=== PATIENT | male | born 1935 | race Caucasian/White ===

== ENCOUNTER 2019-03-15 14:36 | Outpatient (CLI) ==
--- NOTE | 2019-03-15 16:30 | DI ---
EXAM: CHEST FRONTAL AND LATERAL VIEWS HISTORY: Chronic cough. COMPARISON: 12/15/2011 FINDINGS: Heart size and mediastinal contour remain within normal limits. There is mild to modera te atherosclerotic disease. There are scattered calcifications suggesting old granulomatous disease. No acute infiltrates are seen. No vascular congestion. There is no consolidation, visible pleural fluid or pneumothorax. Bones reveal no acute fracture. IMPRESSION: No acute cardiopulmonary process.
== END 2019-03-15 14:37 | disposition home or self-care (01) ==
LOC: RAD 14:36
PROVIDERS: ATTEND Internal Medicine
DX: R05 Cough (principal)

== ENCOUNTER 2019-06-24 06:32 | Outpatient (CLI) ==
--- NOTE | 2019-06-24 12:44 | ECHO2D ---
Date of Exam: 06/24/19 Ordering Physician: DR. VITALY MCCLAIN Room #: OP Reason for Echo: SOB, MITRAL VALVE PROLAPSE, LVH M-Mode Normal Adult Results LV Dimensions Normal Adult Results AoV Opening excursions >1.6 >1.6 LVEDD-base- 3.5-5.8 3.7 Ao root dimensions 2.0-3.7 3.8 LVESD-base- 3.1-4.6 L. Atrium dimensions 1.9-3.8 4.4 Post. Wall thickness 0.8-1.1 1.3 IV septum (thickness) 0.7-1.2 1.3 Post. Wall excursion 0.72-1.3 NORMAL Septal motion NORMAL Systolic motion R. Ventricular cavity 1.5-2.0 NORMAL LVEF 60% 66% Paradoxical septal wall motion NORMAL 2-D : 2-D M Mode Echocardiogram was performed using apical four chamber and left parasternal long and short axis views. Mitral, tricuspid and aortic valves appear to be normal. Contractility of the left ventricle seems to be normal, so is the cavity size. ENLARGED LEFT ATRIAL CAVITY. Aortic root appears to be normal. There is no pericardial effusion. There is no thrombus noted in the left ventricular or left aortic cavity. No mitral valve prolapse noted. COLOR FLOW: MILD TRICUSPID REGURGITATION AND MITRAL REGURGITATION M-MODE: MV: NORMAL AV: NORMAL TV: NORMAL PV: CHAMBER SIZE: ENLARGED LEFT ATRIAL CAVITY WALL MOTION: NORMAL PERICARDIUM: NORMAL INTERPRETATION: 1. LEFT VENTRICULAR HYPERTROPHY WITH ENLARGED LEFT ATRIAL CAVITY 2. NORMAL VALVES 3. NORMAL LEFT VENTRICULAR CONTRACTILITY 4. MILD MITRAL REGURGITATION AND TRICUSPID REGURGITATION MTDD
== END 2019-06-24 06:33 | disposition home or self-care (01) ==
LOC: CAR 06:32
PROVIDERS: ATTEND Internal Medicine
DX: R06.02 Shortness of breath (principal); I51.7 Cardiomegaly; I34.1 Nonrheumatic mitral (valve) prolapse

== ENCOUNTER 2021-04-21 21:44 | Inpatient (IN) ==
--- NOTE | 2021-04-21 22:08 | ED.PDOC ---
General ED Provider: Dr. ALEM KENT-ER Chief Complaint: Shortness of Air Stated Complaint: im sob, my legs are swelliing Time Seen by Provider: 04/21/21 22:00 Mode of Arrival: Walk-In Information Source: Patient Primary Care Provider: VITALY KIDD Nursing and Triage Documentation Reviewed and Agree: Yes Does patient meet sepsis criteria?: No System Inflammatory Response Syndrome: Not Applicable Sepsis Protocol: For patient's 13 years and over: Temp is 96.8 and below OR 101 and greater Pulse >90 BPM Resp >20/minute Acutely Altered Mental Status Are patient's symptoms suggestive of a new infection, such as: -Pneumonia -Skin, Soft Tissue -Endocarditis -UTI -Bone, Joint Infection -Implantable Device -Acute Abdominal Infection -Wound Infection -Meningitis -Blood Stream Catheter Infection -Unknown Respiratory Complaint Exam Shortness of Air Complaint/Exam Onset/Duration: several days Symptoms Are: Still present Timing: Constant Initial Severity: Mild Current Severity: Moderate Character: Reports Dyspnea on exertion Aggravating: Reports None Alleviating: Reports None Associated Signs and Symptoms: Reports Edema and Rapid breathing Home Oxygen Use: No Recent Stress Test: No Recent Echo/LV Function: No Respiratory Distress: None Stridor Present: No Tracheal Deviation: No Subcutaneous Emphysema: No Accessory Muscle Use: No Retractions: Not Present Diminished Breath Sounds: No Prolonged Expiratory Phase: No Unable to Speak Full Sentences: No Fatigue: Yes Leg Swelling: Yes Skye's Sign Present: No Grunting Respirations: No Kussmaul Respirations: No Differential Diagnoses: Pulmonary Edema, Pneumonia and URI Review of Systems Review Of Systems Constitutional: Reports No symptoms Eyes: Reports No symptoms Ears, Nose, Mouth, Throat: Reports No symptoms Respiratory: Reports Cough and Short of air Cardiac: Reports No symptoms GI: Reports No symptoms : Reports No symptoms Musculoskeletal: Reports No symptoms Skin: Reports No symptoms Neurological: Reports No symptoms Endocrine: Reports No symptoms Hematologic/Lymphatic: Reports No symptoms All Other Systems: Reviewed and Negative Physical Exam Physical Exam Appearance: Reports Not Applicable Ill-appearing: Moderate Pain Distress: Not Applicable Eyes: Reports MEGAN, EOMI and Conjunctiva clear ENT: Reports Ears normal, Nose normal and Oropharynx normal Neck: Supple Respiratory: Reports Airway patent and Rhonchi Cardiovascular: Reports RRR, Pulses normal and No rub GI/: Reports Soft, Nontender, No masses and Bowel sounds normal Musculoskeletal: Reports Normal strength, ROM intact, No edema and No calf tenderness Skin: Reports Warm, Dry and Normal color Neurological: Reports Sensation intact, Motor intact, Reflexes intact, Cranial nerves intact, Alert and Oriented Psychiatric: Reports Affect appropriate and Mood appropriate Interpretation Radiology Interpretation Radiology Interpretation By: Radiologist Radiology Results: Positive Exam Interpreted: CT Scan EKG Interpretation Time of EKG #1: 23:11 Rate: Tachy Rhythm: Other [place]: NL ST Segment: Normal Interpretation: afib wih rvr Physician Notification Case Discussed Physician Notified: dr kidd Time of Notification: 23:12 Critical Care Note Critical Care Note Total Critical Care Time (mins): 30 Course Course Hematology/Chemistry: 04/21/21 22:12 04/21/21 22:12 Orders, Labs, Meds: Lab Review 04/21/21 04/21/21 04/21/21 22:04 22:08 22:12 WBC 10.05 RBC 4.24 L Hgb 13.1 L Hct 39.6 L MCV 93.4 MCH 30.9 MCHC 33.1 RDW Coeff of Ap 13.8 Plt Count 186 Immature Gran % (Auto) 0.2 Neut % (Auto) 70.0 Lymph % (Auto) 17.7 [place] % (Auto) 10.6 H Eos % (Auto) 1.2 Baso % (Auto) 0.3 Neut # (Auto) 7.0 H Lymph # (Auto) 1.8 [place] # (Auto) 1.1 Eos # (Auto) 0.1 Baso # (Auto) 0.0 Immature Gran # (Auto) 0.0 Puncture Site [place] Excess 1.6 O2 Saturation 96.1 ABG pH 7.43 ABG pCO2 39.0 ABG pO2 80.0 L ABG HCO3 25.9 ABG Total CO2 27.1 H Flavio Test + Hemoglobin 1.2 Oxyhemoglobin 94.6 L Carboxyhemoglobin 1.9 H Total Hemoglobin 13.0 Sodium Potassium Chloride Carbon Dioxide Anion Gap BUN Creatinine Estimated GFR (MDRD) BUN/Creatinine Ratio Glucose Calcium Total Bilirubin AST ALT Alkaline Phosphatase NT-Pro-B Natriuret Pep Total Protein Albumin Globulin Albumin/Globulin Ratio TSH Adenovirus (PCR) Not detected B. pertussis DNA (PCR) Not detected B.parapertussis DNA PCR Not detected C. pneumoniae DNA (PCR) Not detected Coronavirus OC43 (PCR) Not detected Coronavirus HKU1 (PCR) Not detected Coronavirus 229E (PCR) Not detected Coronavirus NL63 (PCR) Not detected Human Metapneumovir PCR Not detected Influenza Type A (PCR) Not detected Influenza B (RT-PCR) Not detected M. pneumoniae (PCR) Not detected Parainfluenza 1 (PCR) Not detected Parainfluenza 2 (PCR) Not detected Parainfluenza 3 (PCR) Not detected Parainfluenza 4 (PCR) Not detected RSV (PCR) Not detected Entero/Rhino (PCR) Not detected SARS-CoV-2 (PCR) Not detected 04/21/21 04/21/21 22:12 22:12 WBC RBC Hgb Hct MCV MCH MCHC RDW Coeff of Ap Plt Count Immature Gran % (Auto) Neut % (Auto) Lymph % (Auto) [place] % (Auto) Eos % (Auto) Baso % (Auto) Neut # (Auto) Lymph # (Auto) [place] # (Auto) Eos # (Auto) Baso # (Auto) Immature Gran # (Auto) Puncture Site Base Excess O2 Saturation ABG pH ABG pCO2 ABG pO2 ABG HCO3 ABG Total CO2 Flavio Test Hemoglobin Oxyhemoglobin Carboxyhemoglobin Total Hemoglobin Sodium 137.9 Potassium 3.71 Chloride 105.0 Carbon Dioxide 28.9 Anion Gap 7.71 BUN 35.9 H Creatinine 1.23 H Estimated GFR (MDRD) 56.00 BUN/Creatinine Ratio 29.18 Glucose 90.3 Calcium 9.23 Total Bilirubin 0.53 AST 69.3 H ALT 120.8 H Alkaline Phosphatase 79.9 NT-Pro-B Natriuret Pep 3440.000 H Total Protein 5.98 L Albumin 3.66 Globulin 2.32 Albumin/Globulin Ratio 1.57 TSH 6.270 H Adenovirus (PCR) B. pertussis DNA (PCR) B.parapertussis DNA PCR C. pneumoniae DNA (PCR) Coronavirus OC43 (PCR) Coronavirus HKU1 (PCR) Coronavirus 229E (PCR) Coronavirus NL63 (PCR) Human Metapneumovir PCR Influenza Type A (PCR) Influenza B (RT-PCR) M. pneumoniae (PCR) Parainfluenza 1 (PCR) Parainfluenza 2 (PCR) Parainfluenza 3 (PCR) Parainfluenza 4 (PCR) RSV (PCR) Entero/Rhino (PCR) SARS-CoV-2 (PCR) Orders Category Date Time Status ABG DRAW REQUEST Stat CARDIO 04/21/21 22:04 Completed EKG-(ED ONLY) Stat CARDIO 04/21/21 22:04 Completed ED MOTOR EQUIPMENT SERGEANT APPLIED .ONCE EMERGENCY 04/21/21 22:04 Active ED IV/MEDIPORT/POWERPORT .ONCE EMERGENCY 04/21/21 22:04 Active ABG COOX Stat LAB 04/21/21 22:04 Completed CBC W/ AUTO DIFF Stat LAB 04/21/21 22:12 Completed COMPREHENSIVE METABOLIC PANEL Stat LAB 04/21/21 22:12 Completed NT-PROBNP Stat LAB 04/21/21 22:12 Completed RESPIRATORY PANEL 2.1 (PCR) Stat LAB 04/21/21 22:08 Completed THYROID STIMULATING HORMONE Stat LAB 04/21/21 22:12 Completed URINALYSIS C & S IF INDICATED Stat LAB 04/21/21 22:04 Uncollected 0.9 % Sodium Chloride [Saline Flush] MEDS 04/21/21 22:04 Active 1 syr IVF PRN PRN Digoxin Inj [Lanoxin] MEDS 04/21/21 23:11 Stat 250 mcg IVP ONCE STA Diltiazem HCl [Cardizem] 125 mg MEDS 04/21/21 23:00 Active 0.9 % Sodium Chloride [Sodium Chloride] [address] CHEST W/O CONTRAST Stat RADS 04/21/21 22:04 Completed Medications Generic Name Dose Route Start Last Admin Trade Name Freq PRN Reason Stop Dose Admin Digoxin 250 mcg 04/21/21 23:11 Digoxin Inj 500 Mcg/2 Ml Amp IVP 04/21/21 23:12 ONCE STA Diltiazem HCl 125 mg/ Sodium 125 mls @ 5 mls/hr 04/21/21 23:00 04/21/21 22:57 Chloride IV 5 mg/hr TITRATION CHANCE 5 mls/hr Administration Protocol 5 MG/HR Sodium Chloride 1 syr 04/21/21 22:04 0.9% Sodium Chloride 10 Ml Disp.Syrin IVF PRN PRN To flush IV Vital Signs: Temp Pulse Resp BP Pulse Ox 04/21/21 21:47 97.1 F L 81 22 128/77 96 Discharge Plan Discharge Patient Disposition: ADMITTED INPATIENT Discharge Problem: Atrial fibrillation with rapid ventricular response Prescriptions: No Action olmesartan 40 mg Tablet 40 mg PO DAILY RF: 0 prednisone 10 mg tablet 10 mg PO BID RF: 0 azithromycin 250 mg tablet 250 mg PO DAILY RF: 0 omeprazole 20 mg capsule,delayed release(DR/EC) 20 mg PO DAILY RF: 0 tamsulosin 0.4 mg capsule 0.4 mg PO DAILY RF: 0 hydrochlorothiazide 25 mg tablet 25 mg PO DAILY RF: 0 aspirin 325 mg Tablet 325 mg PO DAILY RF: 0 ED Provider: ALEM ROCKWELL Condition: Good Physician Progress Note: []
[2021-04-21 22:16] LABS: BORDETELLA PARAPERTUSSIS (PCR) NOT DETECTED (NOT DETECT); BORDETELLA PERTUSSIS (PCR) NOT DETECTED (NOT DETECT); CHLAMYDIA PNEUMONIAE (PCR) NOT DETECTED (NOT DETECT); CORONAVIRUS 229E (PCR) NOT DETECTED (NOT DETECT); CORONAVIRUS HKU1 (PCR) NOT DETECTED (NOT DETECT); CORONAVIRUS NL63 (PCR) NOT DETECTED (NOT DETECT); CORONAVIRUS OC43 (PCR) NOT DETECTED (NOT DETECT); HUMAN METAPNEUMOVIRUS (PCR) NOT DETECTED (NOT DETECT); HUMAN RHINOVIRUS/ENTEROV (PCR) NOT DETECTED (NOT DETECT); INFLUENZA B (PCR) NOT DETECTED (NOT DETECT); MYCOPLASMA PNEUMONIAE (PCR) NOT DETECTED (NOT DETECT); PARAINFLUENZA VIRUS 1 (PCR) NOT DETECTED (NOT DETECT); PARAINFLUENZA VIRUS 2 (PCR) NOT DETECTED (NOT DETECT); PARAINFLUENZA VIRUS 3 (PCR) NOT DETECTED (NOT DETECT); PARAINFLUENZA VIRUS 4 (PCR) NOT DETECTED (NOT DETECT); RESPIRATORY SYNCYTIAL V (PCR) NOT DETECTED (NOT DETECT); SARS_COV_2 (PCR) NOT DETECTED (NOT DETECT)
[2021-04-21 22:16] LABS: BASOPHILS % (AUTO) 0.3 % (0.0-3.0); EOSINOPHILS # (AUTO) 0.1 K/ul (0.0-0.7); EOSINOPHILS % (AUTO) 1.2 % (0.0-7.0); HEMATOCRIT 39.6 % (42.0-52.0); HEMOGLOBIN 13.1 g/dl (14.0-18.0); IMMATURE GRANULOCYTE % (AUTO) 0.2 % (0.0-5.0); LYMPHOCYTES # (AUTO) 1.8 K/uL (0.60-3.4); LYMPHOCYTES % (AUTO) 17.7 (10.0-50.0); MEAN CORPUSCULAR HEMOGLOBIN 30.9 pg (27.0-31.0); MEAN CORPUSCULAR HGB CONC 33.1 (31.8-35.4); MEAN CORPUSCULAR VOLUME 93.4 fl (80.0-94.0); MONOCYTES # (AUTO) 1.1 K/uL (0.4-2.0); MONOCYTES % (AUTO) 10.6 (0-10); PLATELET COUNT 186 10^3/uL (140-440); RDW COEFFICIENT OF VARIATION 13.8 % (11.6-14.8); RED BLOOD COUNT 4.24 10^6/ul (4.70-6.10); WHITE BLOOD COUNT 10.05 K/ul (4.2-10.2)
[2021-04-21 22:28] LABS: ALANINE AMINOTRANSFERASE 120.8 U/L (0-50); ALBUMIN 3.66 g/dL (3.5-5.0); ALKALINE PHOSPHATASE 79.9 U/L (56-119); ASPARTATE AMINO TRANSFERASE 69.3 U/L (17-59); BILIRUBIN,TOTAL 0.53 mg/dL (0.2-1.3); BLOOD UREA NITROGEN 35.9 mg/dL (9-20); CALCIUM 9.23 mg/dL (8.4-10.2); CARBON DIOXIDE 28.9 mmol/L (22-30.0); CREATININE 1.23 mg/dL (0.60-1.10); GLUCOSE 90.3 mg/dL (74-106); POTASSIUM 3.71 mmol/L (3.5-5.1); SODIUM 137.9 mmol/L (134.5-145); TOTAL PROTEIN 5.98 g/dL (6.3-8.2)
[2021-04-21 22:50] LABS: ABG PH 7.43 (7.35-7.45); BEecf 1.6 (-2.0-3.0)
[2021-04-21 22:51] LABS: ABG O2 HGB 94.6 % (95-100); COHb 1.9 (0.5-1.5); HCO3 25.9 (21-28); MetHb 1.2 (0-1.5); TCO2 27.1 (19-24); sO2 96.1 % (94-98)
[2021-04-21] MEDS: CARDIZEM 125 MG in SODIUM CHLORIDE 100 ML IV SCH (22:57)
[2021-04-21 22:59] LABS: THYROID STIMULATING HORMONE 6.27 uIU/L (0.465-4.68)
--- NOTE | 2021-04-21 23:00 | CT ---
EXAM: CT scan chest without contrast HISTORY: Dyspnea COMPARISON: None. FINDINGS: Helically acquired axial images obtained through the thorax without contrast utilizing 5-m m collimation. Sagittal and coronal reconstructions were imaged and reviewed.. The thoracic inlet i s unremarkable. The ascending aorta is ectatic measuring 4 cm. There are subcentimeter pretracheal lymph nodes. Evaluation hilar structures was limited without intravenous contrast. The heart is enl arged without pericardial effusion. There is mild coronary artery calcification.. There are moderat e sized bilateral pleural effusions measuring 4.8 cm AP dimension on the right and 4.7 cm AP dimensio n on the left. There is adjacent atelectasis and/or pneumonia. There is fissural fluid on the left. . Scarring is noted posteriorly at the left apex. There is a 5 mm nodule posteriorly within the lef t upper lobe which merits follow-up.. Remote compression deformities are noted at T1-T5 and T11. Th ere is a kyphotic deformity. Small amount perihepatic ascites. IMPRESSION: Cardiomegaly with mild coronary artery calcification. Ectatic ascending aorta. Moderate bowel pleural effusions with adjacent atelectasis and/or pneumonia. 5 mm left upper lobe nodule which merits follow-up. Comment: Fleischner Society Recommendations on Incidental Pulmonary Nodule Follow-up: -measurements are for average length and width, non solid (ground glass) or partly solid nodules may require longer follow-up. Low risk patient: (minimal or absent known risk factors) <=4mm- no follow up needed >4-6mm- 12 mo, >6-8mm- initial at 6-12 mo, then 18-24 mo if no change >8mm- follow up CT at 3, 9, 24 mo, dynamic thin slice contrast CT, PET and/or biopsy High risk patient: (history of smoking or other risk factors) <=4mm- follow up CT at 12 mo >4-6mm- initial CT at 6-12 mo then 18-24 mo if no change >6-8mm- initial CT at 3-6, 9-12 then 18-24 mo >8mm- same as low risk All CT scans are performed using dose optimization techniques as appropriate to the performed exam an d include at least one of the following: Automated exposure control, adjustment of the mA and/or kV according t o size, and the use of iterative reconstruction technique.
[2021-04-21 23:03] LABS: ADENOVIRUS (PCR) NOT DETECTED (NOT DETECT)
[2021-04-21] MEDS ORDERED: LANOXIN IVP STA (23:11)
[2021-04-22 01:36] VITALS: BMI 28.8
[2021-04-22 02:35] LABS: BILIRUBIN,URINE Negative (NEGATIVE); CLARITY,URINE Clear (CLEAR); COLOR,URINE Yellow (YELLOW); GLUCOSE, URINE (UA) Negative (NEGATIVE); KETONES,URINE Negative (NEGATIVE); LEUKOCYTE ESTERASE ,URINE Negative (NEGATIVE); NITRITE,URINE Negative (NEGATIVE); PROTEIN,URINE Negative (NEGATIVE); URINE, BLOOD Trace-intact (NEGATIVE); UROBILINOGEN,URINE 0.2 (0.2)
[2021-04-22 02:42] LABS: SQUAMOUS EPITHELIAL CELL,UR NOT PRESENT (0-5); URINE RBC, MICROSCOPIC 0-2 (0-2)
[2021-04-22] MEDS ORDERED: TYLENOL PO PRN (04:05)
[2021-04-22] MEDS ORDERED: NITROSTAT SL PRN (04:05)
[2021-04-22] MEDS ORDERED: ATROPINE SULFATE PFS IVP PRN (04:05)
[2021-04-22 04:22] LABS: BASOPHILS % (AUTO) 0.1 % (0.0-3.0); EOSINOPHILS % (AUTO) 0.3 % (0.0-7.0); HEMATOCRIT 38.7 % (42.0-52.0); HEMOGLOBIN 12.7 g/dl (14.0-18.0); IMMATURE GRANULOCYTE % (AUTO) 0.3 % (0.0-5.0); LYMPHOCYTES # (AUTO) 0.7 K/uL (0.60-3.4); LYMPHOCYTES % (AUTO) 9.4 (10.0-50.0); MEAN CORPUSCULAR HEMOGLOBIN 30.5 pg (27.0-31.0); MEAN CORPUSCULAR HGB CONC 32.8 (31.8-35.4); MONOCYTES # (AUTO) 0.5 K/uL (0.4-2.0); MONOCYTES % (AUTO) 6.3 (0-10); NEUTROPHILS # (AUTO) 6.6 K/ul (2.0-6.9); NEUTROPHILS % (AUTO) 83.6 % (42.2-75.2); PLATELET COUNT 172 10^3/uL (140-440); RDW COEFFICIENT OF VARIATION 13.8 % (11.6-14.8); RED BLOOD COUNT 4.16 10^6/ul (4.70-6.10)
[2021-04-22 04:33] LABS: CREATINE KINASE 142.4 U/L (55-170)
[2021-04-22 04:34] LABS: ALANINE AMINOTRANSFERASE 113.8 U/L (0-50); ALBUMIN 3.45 g/dL (3.5-5.0); ALKALINE PHOSPHATASE 80.8 U/L (56-119); ASPARTATE AMINO TRANSFERASE 61.6 U/L (17-59); BILIRUBIN,TOTAL 0.46 mg/dL (0.2-1.3); CALCIUM 9.19 mg/dL (8.4-10.2); CARBON DIOXIDE 29.9 mmol/L (22-30.0); CREATININE 1.08 mg/dL (0.60-1.10); GLUCOSE 117.9 mg/dL (74-106); POTASSIUM 4.27 mmol/L (3.5-5.1); SODIUM 137.1 mmol/L (134.5-145); TOTAL PROTEIN 5.6 g/dL (6.3-8.2)
[2021-04-22 04:55] LABS: TROPONIN I < 0.012 ng/ml (0.0000-0.120)
[2021-04-22] MEDS: LASIX IVP SCH (05:47)
[2021-04-22] MEDS ORDERED: HYDROCHLOROTHIAZIDE PO SCH (09:00)
[2021-04-22] MEDS ORDERED: BENICAR PO SCH (09:00)
[2021-04-22] MEDS: PRILOSEC PO SCH (09:10)
[2021-04-22] MEDS: ELIQUIS PO SCH ×2 (09:11→20:21)
[2021-04-22] MEDS: FLOMAX PO SCH (09:11)
[2021-04-22] MEDS: CARDIZEM 125 MG in SODIUM CHLORIDE 100 ML IV SCH ×2 (10:58→20:56)
[2021-04-22] MEDS ORDERED: K-DUR PO SCH (11:30)
[2021-04-22] MEDS: CARDIZEM PO SCH ×2 (12:00→20:21)
[2021-04-22] MEDS ORDERED: PREDNISONE PO SCH (12:00)
[2021-04-22] MEDS: ZITHROMAX PO SCH (12:08)
[2021-04-22] MEDS: MICRO-K CAP PO SCH (12:08)
[2021-04-22 12:32] LABS: CREATINE KINASE 125.2 U/L (55-170)
[2021-04-22 12:45] LABS: TROPONIN I < 0.012 ng/ml (0.0000-0.120)
[2021-04-22] MEDS: PREDNISONE PO SCH (16:21)
[2021-04-22] MEDS ORDERED: LANOXIN IVP STA (22:49)
[2021-04-23] MEDS: CARDIZEM PO SCH ×2 (05:13→21:32)
[2021-04-23 05:14] LABS: HEMATOCRIT 37.3 % (42.0-52.0); HEMOGLOBIN 12.4 g/dl (14.0-18.0); MEAN CORPUSCULAR HEMOGLOBIN 30.5 pg (27.0-31.0); MEAN CORPUSCULAR HGB CONC 33.2 (31.8-35.4); MEAN CORPUSCULAR VOLUME 91.9 fl (80.0-94.0); PLATELET COUNT 194 10^3/uL (140-440); RDW COEFFICIENT OF VARIATION 13.6 % (11.6-14.8); RED BLOOD COUNT 4.06 10^6/ul (4.70-6.10); WHITE BLOOD COUNT 8.09 K/ul (4.2-10.2)
[2021-04-23 05:30] LABS: ALANINE AMINOTRANSFERASE 98.1 U/L (0-50); ALBUMIN 3.53 g/dL (3.5-5.0); ALKALINE PHOSPHATASE 76.7 U/L (56-119); ASPARTATE AMINO TRANSFERASE 39.5 U/L (17-59); BILIRUBIN,TOTAL 0.65 mg/dL (0.2-1.3); BLOOD UREA NITROGEN 26.8 mg/dL (9-20); CALCIUM 9.04 mg/dL (8.4-10.2); CARBON DIOXIDE 31.4 mmol/L (22-30.0); CHLORIDE 100.3 mmol/L (98-107); CREATININE 1.08 mg/dL (0.60-1.10); POTASSIUM 4.39 mmol/L (3.5-5.1); SODIUM 135.6 mmol/L (134.5-145); TOTAL PROTEIN 5.7 g/dL (6.3-8.2)
[2021-04-23 05:39] LABS: ANISOCYTOSIS NOT PRESENT (NOT PRESENT)
[2021-04-23] MEDS: LASIX IVP SCH (05:48)
[2021-04-23 06:02] LABS: THYROID STIMULATING HORMONE 1.03 uIU/L (0.465-4.68)
[2021-04-23] MEDS: BENICAR PO SCH (09:33)
[2021-04-23] MEDS: ELIQUIS PO SCH ×2 (09:33→21:32)
--- NOTE | 2021-04-23 09:33 | PCM.PROG ---
Attending Provider: ATTENDING PROVIDER: Dr. VITALY MCCLAIN This patient is seen with Nadia Purvis, Nurse Practitioner. DATE OF SERVICE: 04/23/21 SUBJECTIVE: This 85 year old /WHITE M was hospitalized 04/22/21. The patient is resting comfortably.Stopped Cardizem drip around 5 this morning. Heart rate round 110-115. Reports feeing less short of breath. Significant urine output yesterday. REVIEW OF SYSTEMS: CONSTITUTIONAL: No night sweats. No fatigue, malaise, lethargy. No fever or chills. HEENT: Eyes: No visual changes. No eye pain. No eye discharge. ENT: No runny n ose. No epistaxis. No sinus pain. No odynophagia. No congestion. RESPIRATORY: No cough, no congestion. No hemoptysis. Shortness of breath. CARDIOVASCULAR: No angina symptoms. No CHF symptoms. No atypical chest pain for CAD. Palpitations. No orthopnea.. GASTROINTESTINAL: No abdominal pain. No nausea or vomiting. No diarrhea or constipation. No hematemesis. No hematochezia. GENITOURINARY: No urgency. No frequency. No dysuria. No hematuria. No obstructive symptoms. No discharge. No pain. No significant abnormal bleeding. MUSCULOSKELETAL: No musculoskeletal pain; no joint swelling. NEUROLOGICAL: Awake, alert, oriented to time, place and person. No headache. No neck pain. No syncope. No seizures. No dizziness. PSYCHIATRIC: Not anxious. No depression. No suicidal thoughts. No homicidal thoughts. SKIN: No rash. No lesions. No wounds. ENDOCRINE: No unexplained weight loss. No weight gain. HEMATOLOGIC/LYMPHATIC: No anemia. No purpura. No petechiae. No prolonged or excessive bleeding. No palpable lymph nodes. PHYSICAL EXAMINATION: GENERAL: The patient is awake, alert and oriented, lying in bed in no distress. VITAL SIGNS: Temperature 96.9 F, Pulse 114, Respiratory Rate 24, BP 118/71, Pulse Ox 92% HEENT: Head normocephalic, atraumatic. Eyes: Extraocular muscles are intact. Pupils are equal, round and reactive to light and accommodation. Ears: No lesions. Nose appeared normal. Throat: No exudate or erythema. NECK: Supple. No JVD, no carotid bruit. No lymphadenopathy or thyromegaly. LUNGS: Diminished breath sounds. Clear to auscultation. Percussion note normal. Chest symmetrical. HEART: Irregular heart rate. S1, S2, no S3. No murmurs. No cyanosis or clubbing. No ascites. Pulses: Dorsalis pedis and posterior tibial pulses +1 to +2 both sides. ABDOMEN: Soft. Non-tender. Bowel sounds active. No CVA tenderness. No mass felt. EXTREMITIES: Trace bilateral edema. Full range of motion of all extremities, equal. NEUROLOGIC: No focal deficit. Cranial nerves II through XII are grossly intact. No headache. No double vision. SKIN: Not dry. Intact. Turgor-normal. LYMPHATIC: No palpable lymph nodes/no lymphedema. MUSCULOSKELETAL: Normal joints with no swelling. Muscle tone is normal. LAB REVIEW: 04/23/21 04:35 04/23/21 04:35 04/23/21 04:35: Sodium 135.6, Potassium 4.39, Chloride 100.3, Carbon Dioxide 31.4 H, Anion Gap 8.29, BUN 26.8 H, Creatinine 1.08, Estimated GFR (MDRD) 65.00, BUN/Creatinine Ratio 24.81, Glucose 122.0 H, Calcium 9.04, Total Bilirubin 0.65, AST 39.5, ALT 98.1 H, Alkaline Phosphatase 76.7, Total Protein 5.70 L, Albumin 3.53, Globulin 2.17, Albumin/Globulin Ratio 1.62, TSH 1.030 D 04/23/21 04:35: WBC 8.09, RBC 4.06 L, Hgb 12.4 L, Hct 37.3 L, MCV 91.9, MCH 30.5, MCHC 33.2, RDW Coeff of Ap 13.6, Plt Count 194, Neutrophils % (Manual) 90.0 H, Lymphocytes % (Manual) 5.0 L, Monocytes % (Manual) 5.0, Anisocytosis Not present 04/23/21 04:35: Free T4 1.45 04/22/21 12:15: Total Creatine Kinase 125.2, CK-MB (CK-2) 10.900 H*, CK-MB (CK- 2) % 8.7000, Troponin I < 0.012 ASSESSMENT: Please see below. 1. New onset atrial fibrillation with RVR 2. CHF 3. Aortic stenosis PLAN: 1. Discontinue Prednisone 2. Will monitor heart rate with PO Cardizem Plan and coordination of the patient's care discussed in the presence of Parachute Rigger and nurse. SCRIBED BY: Cydney OBRIEN scribed while in presence of service performed by Dr. Mcclain/Nadia Purvis APRN on 04/23/21 ([id number])
[2021-04-23] MEDS: FLOMAX PO SCH (09:34)
[2021-04-23] MEDS: ZITHROMAX PO SCH (09:34)
[2021-04-23] MEDS: PRILOSEC PO SCH (09:34)
[2021-04-23] MEDS: MICRO-K CAP PO SCH (09:34)
--- NOTE | 2021-04-23 09:36 | PN ---
DATE OF SERVICE: 04/22/21 - ADMIT NOTE SUBJECTIVE: 85-year-old white male was brought to the emergency room by son because of having shortness of breath with cough. Also had bilateral leg swelling. The patient on further workup by the ER attending appeared to be in mild congestive heart failure along with atrial fib with rapid ventricular response with bilateral leg edema. Lungs on auscultation has crepitations bilaterally. JVP 2 cm. S1, S2 tachycardia, edema - +1 pitting. LABS: Hemoglobin 12.7, hematocrit 38, WBC 7,900, normal differential. Creatinine 1, BUN 33, potassium 4.2. Arterial blood gases showed pH 7.43 with p02 of 80, pc02 of 39, oxygen saturation 96% on room air. GFR 65 cc/min. Troponin negative. CK- MB borderline. Pro-BNP 3,440. ASSESSMENT: 1. CHF 2. Atrial fibrillation with rapid ventricular response. The patient's CHADS2 VASc score 3. The patient's daughter present in the room. Atrial fibrillation discussed with complications. PLAN: 1. T4, TSH as TSH is low. The patient could be hypothyroid. 2. Echo to evaluate LA size, LV function and valvular structures. 3. Discontinue Hydrochlorothiazide. 4. Continue Lasix. 5. Wean off Cardizem drip from 7. Start the patient on Cardizem 60 mg three times a day p.o. 6. Benicar to be reduced to 20 p.o. daily. Add Cardizem in case there is a hypotensive effect. 7. Will use Lanoxin if needed to control the ventricular rate. 8. We may add Amiodarone depending upon the patient's ventricular rate and cardiac structure. 9. Eliquis 5 mg p.o. twice a day. 10. Continue Zithromax and Prednisone. Education carried out about atrial fibrillation with complications. Eliquis with GI bleed and intracranial bleed discussed. No nonsteroidal antiinflammatory with Eliquis. TIME SPENT: More than 30 minutes. Plan and coordination of the patient's care discussed in the presence of nurse. PARMINDER
[2021-04-23] MEDS ORDERED: CARDIZEM PO ONE (10:14)
[2021-04-23] MEDS: PREDNISONE PO SCH (10:27)
[2021-04-23] MEDS ORDERED: LANOXIN IVP ONE ×2 (12:04→22:48)
[2021-04-23] MEDS: LANOXIN IVP ONE ×2 (13:08→13:17)
[2021-04-23] MEDS: CARDIZEM 125 MG in SODIUM CHLORIDE 100 ML IV SCH (22:30)
[2021-04-23] MEDS: LOPRESSOR PO SCH (23:03)
[2021-04-24 05:22] LABS: BASOPHILS % (AUTO) 0.2 % (0.0-3.0); EOSINOPHILS # (AUTO) 0.3 K/ul (0.0-0.7); EOSINOPHILS % (AUTO) 2.5 % (0.0-7.0); HEMATOCRIT 40.6 % (42.0-52.0); HEMOGLOBIN 13.4 g/dl (14.0-18.0); IMMATURE GRANULOCYTE % (AUTO) 0.4 % (0.0-5.0); LYMPHOCYTES # (AUTO) 1.8 K/uL (0.60-3.4); LYMPHOCYTES % (AUTO) 17.1 (10.0-50.0); MEAN CORPUSCULAR HEMOGLOBIN 30.7 pg (27.0-31.0); MEAN CORPUSCULAR VOLUME 93.1 fl (80.0-94.0); MONOCYTES # (AUTO) 0.9 K/uL (0.4-2.0); MONOCYTES % (AUTO) 8.6 (0-10); NEUTROPHILS # (AUTO) 7.6 K/ul (2.0-6.9); NEUTROPHILS % (AUTO) 71.2 % (42.2-75.2); PLATELET COUNT 201 10^3/uL (140-440); RDW COEFFICIENT OF VARIATION 13.6 % (11.6-14.8); RED BLOOD COUNT 4.36 10^6/ul (4.70-6.10)
[2021-04-24] MEDS: LASIX IVP SCH (05:30)
[2021-04-24 05:36] LABS: ALANINE AMINOTRANSFERASE 83.2 U/L (0-50); ALBUMIN 3.32 g/dL (3.5-5.0); ALKALINE PHOSPHATASE 73.3 U/L (56-119); ASPARTATE AMINO TRANSFERASE 34.4 U/L (17-59); BILIRUBIN,TOTAL 0.61 mg/dL (0.2-1.3); BLOOD UREA NITROGEN 27.9 mg/dL (9-20); CALCIUM 9.04 mg/dL (8.4-10.2); CHLORIDE 97.3 mmol/L (98-107); CREATININE 1.1 mg/dL (0.60-1.10); GLUCOSE 100.5 mg/dL (74-106); POTASSIUM 4.4 mmol/L (3.5-5.1); SODIUM 133.8 mmol/L (134.5-145); TOTAL PROTEIN 5.59 g/dL (6.3-8.2)
[2021-04-24] MEDS: PRILOSEC PO SCH (08:14)
[2021-04-24] MEDS: MICRO-K CAP PO SCH (08:14)
[2021-04-24] MEDS: LOPRESSOR PO SCH ×2 (08:14→21:20)
[2021-04-24] MEDS: FLOMAX PO SCH (08:14)
[2021-04-24] MEDS: CARDIZEM PO SCH ×2 (08:15→21:20)
[2021-04-24] MEDS: BENICAR PO SCH (08:27)
[2021-04-24] MEDS: ELIQUIS PO SCH ×2 (08:28→21:20)
--- NOTE | 2021-04-24 16:31 | RS.PTINEVL ---
Subjective - Patient information Date of Evaluation: 04/24/21 Date of Arrival on Unit: 04/21/21 Admitted From:: Emergency Dept Diagnosis: new onset AFib, CHF, aortic stenosis Usual Living Arrangement: With Spouse Home Environment: House, Stairs (few), Rail Medical History: Hypertension, CHF, Arthritis Medical History Comments:: GERD, cardiomegaly, diverticulosis, BPH, h/o falls Medications: see chart Subjective Information/ Patient Comments:: pt states that he normally walks ok and does not use an AD. pt states that this all came on fast. pt also reports that he has a torn L rotator cuff when he fell on the ice this past winter. - Level of function Prior to this admission, the patient could do the following:: Independent Selfcare, Independent ADL's, Independent Ambulation, Perform Table Tender/Cooking, Drive, Participated in Social Activities Outside home, Volunteer/Work Abilities prior to this admission: pt was independent with caring for his yard. Current Level of Function: Partially Dependent Comments: pt feels the socks are slick and feels better trying to amb in his shoes. Current Equipment Used at Home: none Interventions - Objective Patient Orientation: Person, Place, Time, Situation Current Interventions: Oxygen Range of Motion - ROM Right Upper Extremity AROM: Slight limitation (shld slighly limited due to previous injury) Left Upper Extremity AROM: WFL's Right Lower Extremity AROM: WFL's Left Lower Extremity AROM: WFL's Muscle Strength - Muscle Strength Right Upper Extremity Strength: Mild Weakness (shld flex 3+/5, elbow flex/ext 4/5,) Left Upper Extremity Strength: Mild Weakness (grossly 4/5) Right Lower Extremity Strength: Mild Weakness (hip flex 4-/5, knee flex/ext 4/5, ankle 4-/5) Left Lower Extremity Strength: Mild Weakness (hip flex 4-/5, knee flex/ext 4/5, ankle 4-/5) Sensation - Sensation Right Upper Extremity Sensation: Intact/Normal Left Upper Extremity Sensation: Intact/Normal Right Lower Extremity Sensation: Intact/Normal Left Lower Extremity Sensation: Intact/Normal Balance - Sitting Balance and Reactions Static Sitting Balance: Good Dynamic Sitting Balance: Good - Standing Balance and Reactions Static Standing Balance: Fair Dynamic Standing Balance: Poor Functional Mobility - Bed Mobility Comments:: pt seen sitting up in the chair - Transfers Sit to Stand: CGA, Min Assist Stand to Sit: CGA - Safety Awareness Safety Awareness: Fair PHILLIP INDEX SCORE: n/a Ambulation - Ambulation Assistive Device Used: Gait belt Orthotic/Prosthetic Device: No Distance: 110ft Assistance needed with Ambulation: CGA, Min Assist Gait Deviations: Forward posture, Short stride, Deviates from path Ambulation Comments: pt amb with B foot slap, occasional scissoring. Factors Affecting Ambulation: Decreased Balance, Breathing/O2 Saturation, Weakness, Decreased Safety, Limited Endurance Treatment time - Time with patient Length of Evaluation: 19 Total treatment time: 23 Patient Education - Education Patient Education: Activity Modification, Education of Plan of Care Teaching Recipient: Patient Teaching Methods: Discussion Assessment - Assessment Problem List:: Decreased level of function, Requires training/education, Decreased safety/Risk of falls, Weakness Rehab Potential: Good Further Therapy Indicated?: Yes Candidate for Swing Bed for Therapy Services?: Feel pt may be high level would need to reassess at a later date. Evaluation Complexity: HISTORY: Medium, EXAM OF BODY SYSTEMS: Medium, CLINICAL PRESENTATION: Medium, CLINICAL DECISION MAKING: Medium Patient's Goal(s): Get stronger and go home Short Term Goals GOAL #1: pt independent with rolling and scooting up in bed. Goal to be met by: 04/26/21 GOAL #2: Sup to/from sit independently Goal to be met by: 04/26/21 GOAL #3: Sit to/from stand SBA Goal to be met by: 04/26/21 GOAL #4: pt amb with AAD 140ft with improved posture and sequencing CGA to SBA Goal to be met by: 04/26/21 GOAL #5: Improve BLE strength 4+/5 Goal to be met by: 04/26/21 Table Tender Goals GOAL #1: pt amb functional distances with least AD independently Goal to be met by: 04/28/21 GOAL #2: Ascend/descend 3-4 steps w handrail SBA Goal to be met by: 04/28/21 GOAL #3: Transfer sit to/from stand independently Goal to be met by: 04/28/21 Plan Plan of Care: Therapeutic EX, Therapeutic Activity Other:: gait training Frequency of Treatment: 1-2 X day, as tolerated Duration of Treatment: 4 days Anticipated Discharge Destination: Home Treatment Diagnosis (ICD 10 Codes): impaired balance R 26.81. gait difficulty R 26.2. weakness M62.81 Has the Physician been added for Co-signature?: Yes
[2021-04-25 05:04] LABS: BASOPHILS % (AUTO) 0.3 % (0.0-3.0); EOSINOPHILS # (AUTO) 0.2 K/ul (0.0-0.7); HEMATOCRIT 40.1 % (42.0-52.0); HEMOGLOBIN 13.4 g/dl (14.0-18.0); IMMATURE GRANULOCYTE % (AUTO) 0.2 % (0.0-5.0); LYMPHOCYTES # (AUTO) 1.5 K/uL (0.60-3.4); LYMPHOCYTES % (AUTO) 14.4 (10.0-50.0); MEAN CORPUSCULAR HEMOGLOBIN 30.5 pg (27.0-31.0); MEAN CORPUSCULAR HGB CONC 33.4 (31.8-35.4); MEAN CORPUSCULAR VOLUME 91.3 fl (80.0-94.0); MONOCYTES % (AUTO) 9.8 (0-10); NEUTROPHILS # (AUTO) 7.4 K/ul (2.0-6.9); NEUTROPHILS % (AUTO) 73.3 % (42.2-75.2); PLATELET COUNT 206 10^3/uL (140-440); RDW COEFFICIENT OF VARIATION 13.2 % (11.6-14.8); RED BLOOD COUNT 4.39 10^6/ul (4.70-6.10); WHITE BLOOD COUNT 10.13 K/ul (4.2-10.2)
[2021-04-25 05:20] LABS: ALANINE AMINOTRANSFERASE 77.1 U/L (0-50); ALBUMIN 3.46 g/dL (3.5-5.0); ALKALINE PHOSPHATASE 80.7 U/L (56-119); ASPARTATE AMINO TRANSFERASE 34.5 U/L (17-59); BILIRUBIN,TOTAL 0.68 mg/dL (0.2-1.3); BLOOD UREA NITROGEN 28.7 mg/dL (9-20); CALCIUM 8.89 mg/dL (8.4-10.2); CARBON DIOXIDE 33.5 mmol/L (22-30.0); CHLORIDE 93.8 mmol/L (98-107); CREATININE 0.95 mg/dL (0.60-1.10); GLUCOSE 106.3 mg/dL (74-106); POTASSIUM 4.45 mmol/L (3.5-5.1); SODIUM 129.6 mmol/L (134.5-145); TOTAL PROTEIN 5.75 g/dL (6.3-8.2)
[2021-04-25] MEDS: LASIX IVP SCH (06:24)
[2021-04-25] MEDS: PRILOSEC PO SCH (06:24)
[2021-04-25] MEDS ORDERED: DECADRON IM ONE (08:11)
--- NOTE | 2021-04-25 08:29 | PCM.PROG ---
Attending Provider: ATTENDING PROVIDER: Dr. VITALY MCCLAIN This patient is seen with Nadia Purvis, Nurse Practitioner. DATE OF SERVICE: 04/25/21 SUBJECTIVE: This 85 year old /WHITE M was hospitalized 04/22/21. The patient is resting comfortably. Still feeling weak. Complains of sore throat feels it has narrowed, this occurred prior to admission. The patient feels it has returned and getting worse. No choking. The patient is feeling very weak. REVIEW OF SYSTEMS: CONSTITUTIONAL: No night sweats. No fatigue, malaise, lethargy. No fever or chills. Weakness. HEENT: Eyes: No visual changes. No eye pain. No eye discharge. ENT: No runny nose. No epistaxis. No sinus pain. No odynophagia. No congestion. RESPIRATORY: Cough, no congestion. No hemoptysis. No shortness of breath. CARDIOVASCULAR: No angina symptoms. No CHF symptoms. No atypical chest pain for CAD. No palpitations. No orthopnea.. GASTROINTESTINAL: No abdominal pain. No nausea or vomiting. No diarrhea or constipation. No hematemesis. No hematochezia. Dysphagia. GENITOURINARY: No urgency. No frequency. No dysuria. No hematuria. No obstructive symptoms. No discharge. No pain. No significant abnormal bleeding. MUSCULOSKELETAL: No musculoskeletal pain; no joint swelling. NEUROLOGICAL: Awake, alert, oriented to time, place and person. No headache. No neck pain. No syncope. No seizures. No dizziness. PSYCHIATRIC: Not anxious. No depression. No suicidal thoughts. No homicidal thoughts. SKIN: No rash. No lesions. No wounds. ENDOCRINE: No unexplained weight loss. No weight gain. HEMATOLOGIC/LYMPHATIC: No anemia. No purpura. No petechiae. No prolonged or excessive bleeding. No palpable lymph nodes. PHYSICAL EXAMINATION: GENERAL: The patient is awake, alert and oriented, lying in bed in no distress. VITAL SIGNS: Temperature 97.0 F, Pulse 80, Respiratory Rate 18, BP 125/74, Pulse Ox 95% HEENT: Head normocephalic, atraumatic. Eyes: Extraocular muscles are intact. Pupils are equal, round and reactive to light and accommodation. Ears: No lesions. Nose appeared normal. Throat: No exudate or erythema. NECK: Supple. No JVD, no carotid bruit. No lymphadenopathy or thyromegaly. LUNGS: Diminished breath sounds. Clear to auscultation. Percussion note normal. Chest symmetrical. HEART: S1, S2, no S3. Grade I/ murmurs. No cyanosis or clubbing. No ascite s. Pulses: Dorsalis pedis and posterior tibial pulses +1 to +2 both sides. ABDOMEN: Soft. Non-tender. Bowel sounds active. No CVA tenderness. No mass felt. EXTREMITIES: No edema. Full range of motion of all extremities, equal. NEUROLOGIC: No focal deficit. Cranial nerves II through XII are grossly intact. No headache. No double vision. SKIN: Not dry. Intact. Turgor-normal. LYMPHATIC: No palpable lymph nodes/no lymphedema. MUSCULOSKELETAL: Normal joints with no swelling. Muscle tone is normal. LAB REVIEW: 04/25/21 04:29 04/25/21 04:29 04/25/21 04:29: Sodium 129.6 L, Potassium 4.45, Chloride 93.8 L, Carbon Dioxide 33.5 H, Anion Gap 6.75, BUN 28.7 H, Creatinine 0.95, Estimated GFR (MDRD) 75.00, BUN/Creatinine Ratio 30.21, Glucose 106.3 H, Calcium 8.89, Total Bilirubin 0.68, AST 34.5, ALT 77.1 H, Alkaline Phosphatase 80.7, Total Protein 5.75 L, Albumin 3.46 L, Globulin 2.29, Albumin/Globulin Ratio 1.51 04/25/21 04:29: WBC 10.13, RBC 4.39 L, Hgb 13.4 L, Hct 40.1 L, MCV 91.3, MCH 30.5, MCHC 33.4, RDW Coeff of Ap 13.2, Plt Count 206, Immature Gran % (Auto) 0.2, Neut % (Auto) 73.3, Lymph % (Auto) 14.4, [place] % (Auto) 9.8, Eos % (Auto) 2.0, Baso % (Auto) 0.3, Neut # (Auto) 7.4 H, Lymph # (Auto) 1.5, [place] # (Auto) 1.0, Eos # (Auto) 0.2, Baso # (Auto) 0.0, Immature Gran # (Auto) 0.0 04/25/21 04:29: NT-Pro-B Natriuret Pep 1560.000 H ASSESSMENT: Please see below. 1. New onset atrial fibrillation rate now controlled 2. Mitral regurgitation 3. Dysphagia PLAN: 1. Upper GI 2. Repeat chest x-ray 3. Tomorrow start Lasix PO and discontinue IV 4. 4mg Decadrone IM today 5. Ativan 0.5mg QHS Plan and coordination of the patient's care discussed in the presence of [employer] and nurse. SCRIBED BY: Cydney OBRIEN scribed while in presence of service performed by Dr. Mcclain/Nadia Purvis APRN on 04/25/21 ([id number])
[2021-04-25] MEDS: BENICAR PO SCH (09:34)
[2021-04-25] MEDS: LOPRESSOR PO SCH ×2 (09:34→20:47)
[2021-04-25] MEDS: CARDIZEM PO SCH ×2 (09:34→20:46)
[2021-04-25] MEDS: FLOMAX PO SCH (09:34)
[2021-04-25] MEDS: MICRO-K CAP PO SCH (09:34)
[2021-04-25] MEDS: ELIQUIS PO SCH ×2 (09:35→20:45)
--- NOTE | 2021-04-25 10:39 | DI ---
EXAM: Single view of the chest HISTORY: Shortness of breath. COMPARISON: Chest x-ray at [address] chest 04/21/2021 FINDINGS: Cardiomediastinal silhouette is unchanged. There is no pneumothorax. There is blunting of the costophrenic angles consistent with effusions. There is minimal dependent atelectasis. The oss eous structures are unremarkable. IMPRESSION: Small bilateral pleural effusions with adjacent atelectasis.
--- NOTE | 2021-04-25 10:40 | DI ---
EXAM: AP and lateral views of the neck soft tissues COMPARISON: None. HISTORY: Sensation of something in the patient's throat. FINDINGS: No soft tissue swelling. No radiopaque foreign object is identified. Scattered arteriosclerotic calcifications. No acute osseous finding. IMPRESSION: No finding to explain reported symptoms. ASVD.
--- NOTE | 2021-04-25 11:49 | PN ---
DATE OF SERVICE: 04/23/2021 SUBJECTIVE: The patient was seen and examined with the Nurse Practitioner. The patient still has atrial fibrillation with rate of 110-30 per minute. He is going to be put on Cardizem 120mg BID drip. Cardizem will be stopped. Lanoxin extra dose will be given 0.25mg. Metoprolol 25mg BID was added along with 0.125mg IV Lanoxin. The patient's symptoms of CHF has resolved. He is feeling a lot better. Appetite has improved remarkably. Once the heart rate becomes acceptable we will do echocardiogram to evaluate LV function and valvular structures. TIME SPENT: More than 30 minutes. Plan and coordination of the patient's care discussed in the presence of nurse. PARMINDER
--- NOTE | 2021-04-25 14:40 | PN ---
DATE OF SERVICE: 04/24/2021 SUBJECTIVE: 85 year old white male hospitalized with atrial fibrillation with rapid ventricular response with CHF. The patient's CHF seems to have resolved. REVIEW OF SYSTEMS: CONSTITUTIONAL: No night sweats. No fatigue, malaise, lethargy. No fever or chills. HEENT: Eyes: No visual changes. No eye pain. No eye discharge. ENT: No runny nose. No epistaxis. No sinus pain. No sore throat. No odynophagia. No congestion. RESPIRATORY: No cough, no congestion. No hemoptysis. Shortness of breath, practically has subsided at rest. CARDIOVASCULAR: No angina symptoms. No CHF symptoms. No atypical chest pain for CAD. No palpitations. No PND. No orthopnea. GASTROINTESTINAL: No abdominal pain. No nausea or vomiting. No diarrhea or constipation. No hematemesis. No hematochezia. GENITOURINARY: No urgency. No frequency. No dysuria. No hematuria. No obstructive symptoms. No discharge. No pain. No significant abnormal bleeding. MUSCULOSKELETAL: No musculoskeletal pain; no joint swelling. NEUROLOGICAL: No headache. No neck pain. No syncope. No seizures. No dizziness. PSYCHIATRIC: Not anxious. No depression. No suicidal thoughts. No homicidal thoughts. SKIN: No rash. No lesions. No wounds. ENDOCRINE: No unexplained weight loss. No weight gain. HEMATOLOGIC/LYMPHATIC: No anemia. No purpura. No petechiae. No prolonged or excessive bleeding. No palpable lymph nodes. PHYSICAL EXAMINATION: VITAL SIGNS: Temperature 97.4, pulse 83, respiratory rate 16, blood pressure 120/80 and pulse ox 93%. HEENT: Head normocephalic, atraumatic. Eyes: Extraocular muscles are intact. Pupils are equal, round and reactive to light and accommodation. Ears: No lesions. Nose appeared normal. Throat: No exudate or erythema. NECK: Supple. No JVD, no carotid bruit. No lymphadenopathy or thyromegaly. LUNGS: Decreased breath sounds with good air entry. Percussion note normal. Chest symmetrical. HEART: S1, S2, no S3. No murmurs. Rate is 90 per minutes. No cyanosis or clubbing. No ascites. Pulses: Dorsalis pedis and posterior tibial pulses +1 to +2 bilaterally. ABDOMEN: Soft. Nontender. Bowel sounds active. No CVA tenderness. No mass felt. EXTREMITIES: No edema. Full range of motion of all extremities, equal. NEUROLOGIC: No focal deficit. Cranial nerves II through XII are grossly intact. No headache. No double vision. SKIN: Not dry. Intact. Turgor - normal. LYMPHATIC: No palpable lymph nodes/no lymphedema. MUSCULOSKELETAL: Normal joints with no swelling. Muscle tone is normal. LABS: Hgb 13, hct 40, WBC 10,000 normal differential, creatinine 1, BUN 27, potassium 4.4 ASSESSMENT: 1. CHF seems to have resolved 2. Atrial fibrillation with normal ventricular response 3. Chronic lung disease PLAN: 1. BNP in the morning 2. Chest x-ray in the morning 3. Echo was done which showed the same as before with LVH with enlarged LA cavity which is 5 cm. The patient has severe tricuspid regurgitation and moderate mitral regurgitation. 4. Cut down Benicar to 10mg 5. PT/OT 6. The patient is on Eliquis,side effects discussed with GI bleed and intracranial bleed. No non-steroids antiinflammatory. Again discussed with the patient. 7. He is already on Metoprolol and Cardizem. Continue both, control the rate. TIME SPENT: More than 30 minutes. Plan and coordination of the patient's care discussed in the presence of nurse. PARMINDER
[2021-04-25] MEDS ORDERED: ATIVAN PO SCH (21:00)
[2021-04-26 05:06] LABS: BASOPHILS % (AUTO) 0.1 % (0.0-3.0); HEMATOCRIT 39.4 % (42.0-52.0); HEMOGLOBIN 13.3 g/dl (14.0-18.0); IMMATURE GRANULOCYTE # (AUTO) 0.1 (0.0-1.0); IMMATURE GRANULOCYTE % (AUTO) 0.4 % (0.0-5.0); LYMPHOCYTES # (AUTO) 0.6 K/uL (0.60-3.4); LYMPHOCYTES % (AUTO) 4.3 (10.0-50.0); MEAN CORPUSCULAR HGB CONC 33.8 (31.8-35.4); MEAN CORPUSCULAR VOLUME 88.7 fl (80.0-94.0); MONOCYTES # (AUTO) 0.8 K/uL (0.4-2.0); MONOCYTES % (AUTO) 6.5 (0-10); NEUTROPHILS # (AUTO) 11.3 K/ul (2.0-6.9); NEUTROPHILS % (AUTO) 88.7 % (42.2-75.2); PLATELET COUNT 217 10^3/uL (140-440); RDW COEFFICIENT OF VARIATION 13.1 % (11.6-14.8); RED BLOOD COUNT 4.44 10^6/ul (4.70-6.10); WHITE BLOOD COUNT 12.73 K/ul (4.2-10.2)
[2021-04-26 05:21] LABS: ALANINE AMINOTRANSFERASE 70.7 U/L (0-50); ALBUMIN 3.44 g/dL (3.5-5.0); ASPARTATE AMINO TRANSFERASE 36.8 U/L (17-59); BILIRUBIN,TOTAL 0.83 mg/dL (0.2-1.3); BLOOD UREA NITROGEN 29.2 mg/dL (9-20); CALCIUM 9.15 mg/dL (8.4-10.2); CARBON DIOXIDE 29.1 mmol/L (22-30.0); CHLORIDE 96.5 mmol/L (98-107); CREATININE 0.89 mg/dL (0.60-1.10); GLUCOSE 118.6 mg/dL (74-106); POTASSIUM 4.35 mmol/L (3.5-5.1); SODIUM 129.2 mmol/L (134.5-145); TOTAL PROTEIN 5.74 g/dL (6.3-8.2)
[2021-04-26] MEDS ORDERED: LASIX TAB PO SCH (06:30)
[2021-04-26] MEDS: LASIX IVP SCH (07:01)
--- NOTE | 2021-04-26 09:21 | PCM.PROG ---
Attending Provider: ATTENDING PROVIDER: Dr. VITALY MCCLAIN DATE OF SERVICE: 04/26/21 SUBJECTIVE: This 85 year old /WHITE M was hospitalized 04/22/21 with atrial fibrillation with rapid ventricular response. The patient had left ventricular failure. REVIEW OF SYSTEMS: CONSTITUTIONAL: No night sweats. No fatigue, malaise, lethargy. No fever or chills. HEENT: Eyes: No visual changes. No eye pain. No eye discharge. ENT: No runny nose. No epistaxis. No sinus pain. No odynophagia. No congestion. RESPIRATORY: No cough, no congestion. No hemoptysis. No shortness of breath. CARDIOVASCULAR: No angina symptoms. No CHF symptoms. No atypical chest pain for CAD. No palpitations. No orthopnea.. GASTROINTESTINAL: No abdominal pain. No nausea or vomiting. No diarrhea or constipation. No hematemesis. No hematochezia. Some difficulty swallowing. GENITOURINARY: No urgency. No frequency. No dysuria. No hematuria. No obstructive symptoms. No discharge. No pain. No significant abnormal bleeding. MUSCULOSKELETAL: No musculoskeletal pain; no joint swelling. NEUROLOGICAL: Awake, alert, oriented to time, place and person. No headache. No neck pain. No syncope. No seizures. No dizziness. PSYCHIATRIC: Not anxious. No depression. No suicidal thoughts. No homicidal thoughts. SKIN: No rash. No lesions. No wounds. ENDOCRINE: No unexplained weight loss. No weight gain. HEMATOLOGIC/LYMPHATIC: No anemia. No purpura. No petechiae. No prolonged or excessive bleeding. No palpable lymph nodes. PHYSICAL EXAMINATION: GENERAL: The patient is awake, alert and oriented, lying in bed in no distress. VITAL SIGNS: Temperature 97.8 F, Pulse 95, Respiratory Rate 20, BP 111/73, Pulse Ox 92% HEENT: Head normocephalic, atraumatic. Eyes: Extraocular muscles are intact. Pupils are equal, round and reactive to light and accommodation. Ears: No lesions. Nose appeared normal. Throat: No exudate or erythema. NECK: Supple. No JVD, no carotid bruit. No lymphadenopathy or thyromegaly. LUNGS: Clear to auscultation. Percussion note normal. Chest symmetrical. HEART: S1, S2, no S3 rate 90 per minute. Grade II/ systolic murmurs going to axilla. No cyanosis or clubbing. No ascites. Pulses: Dorsalis pedis and posterior tibial pulses +1 to +2 both sides. ABDOMEN: Soft. Non-tender. Bowel sounds active. No CVA tenderness. No mass felt. EXTREMITIES: No edema. Full range of motion of all extremities, equal. NEUROLOGIC: No focal deficit. Cranial nerves II through XII are grossly intact. No headache, no double vision or headache. SKIN: Warm and dry. Intact. Turgor-normal. LYMPHATIC: No palpable lymph nodes/no lymphedema. MUSCULOSKELETAL: Normal joints with no swelling. Muscle tone is normal. LAB REVIEW: 04/26/21 04:42 04/26/21 04:42 04/26/21 04:42: Sodium 129.2 L, Potassium 4.35, Chloride 96.5 L, Carbon Dioxide 29.1, Anion Gap 7.95, BUN 29.2 H, Creatinine 0.89, Estimated GFR (MDRD) 81.00, BUN/Creatinine Ratio 32.80, Glucose 118.6 H, Calcium 9.15, Total Bilirubin 0.83, AST 36.8, ALT 70.7 H, Alkaline Phosphatase 88.0, Total Protein 5.74 L, Albumin 3.44 L, Globulin 2.30, Albumin/Globulin Ratio 1.49 04/26/21 04:42: WBC 12.73 H, RBC 4.44 L, Hgb 13.3 L, Hct 39.4 L, MCV 88.7, MCH 30.0, MCHC 33.8, RDW Coeff of Ap 13.1, Plt Count 217, Immature Gran % (Auto) 0.4, Neut % (Auto) 88.7 H, Lymph % (Auto) 4.3 L, [place] % (Auto) 6.5, Eos % (Auto) 0.0, Baso % (Auto) 0.1, Neut # (Auto) 11.3 H, Lymph # (Auto) 0.6, [place] # (Auto) 0.8, Eos # (Auto) 0.0, Baso # (Auto) 0.0, Immature Gran # (Auto) 0.1 ASSESSMENT: Please see below. 1. Atrial fibrillation with practically normal ventricular response. The patient is on Cardizem, Metoprolol and Eliquis 2. CHF seems to be under control 3. Hypertension, controlled. PLAN: 1. Upper GI for dysphagia 2. Continue the rest of the medications. Plan and coordination of the patient's care discussed in the presence of Community Service Technician and nurse. SCRIBED BY: Cydney OBRIEN scribed while in presence of service performed by Dr. VITALY MCCLAIN on 04/26/21 ([id number])
--- NOTE | 2021-04-26 09:33 | HP ---
DATE OF SERVICE: 04/22/21 HISTORY OF PRESENT ILLNESS: This is an 85-year-old white male who presents to the emergency room complaining of shortness of breath and his legs have been swelling. PAST MEDICAL HISTORY: Right shoulder pain Anemia Chronic cough PVCs PACs COPD Hypertension Neuropathy Kyphosis Systolic murmur with mitral regurgitation History of weight loss LVH The patient has had both Covid vaccines BPH Hypertension Dyslipidemia PAST SURGICAL HISTORY: Last EGD and colonoscopy were in June of 2020. The patient has had both Covid vaccines. REVIEW OF SYSTEMS: CONSTITUTIONAL: Weakness. No night sweats. No fatigue, malaise, lethargy. No fever or chills. HEENT: Eyes: No visual changes. No eye pain. No eye discharge. ENT: No runny nose. No epistaxis. No sinus pain. No sore throat. No odynophagia. No ear pain. No congestion. RESPIRATORY: Positive for cough and shortness of breath. No hemoptysis. CARDIOVASCULAR: No angina symptoms. No CHF symptoms. No atypical chest pain for CAD. No palpitations. No PND. No orthopnea. GASTROINTESTINAL: No abdominal pain. No nausea or vomiting. No diarrhea or constipation. No hematemesis. No hematochezia. GENITOURINARY: No urgency. No frequency. No dysuria. No hematuria. No obstructive symptoms. No discharge. No pain. No significant abnormal bleeding. MUSCULOSKELETAL: Positive for leg edema. No musculoskeletal pain. No joint swelling. No arthritis. NEUROLOGICAL: No headache. No neck pain. No syncope. No seizures. No dizziness. PSYCHIATRIC: Not anxious. No depression. No suicidal thoughts. No homicidal thoughts. SKIN: No rash. No lesions. No wounds. ENDOCRINE: No unexplained weight loss. No weight gain. HEMATOLOGIC/LYMPHATIC: No anemia. No purpura. No petechiae. No prolonged or excessive bleeding. No palpable lymph nodes. PERSONAL/FAMILY/SOCIAL HISTORY: He is a nonsmoker. No alcohol or illcit drug use. MEDICATIONS: Olmesartan 40 mg p.o. daily Tamsulosin ALLERGIES: NKDA PHYSICAL EXAMINATION: VITAL SIGNS: Temperature 97.1, heart rate initially 140, respirations 22, BP 128/77, pulse ox 96%. HEENT: Head normocephalic, atraumatic. Eyes: Extraocular muscles are intact. Pupils are equal, round and reactive to light and accommodation. Ears: No lesions. Nose appeared normal. Throat: No exudate or erythema. NECK: Supple. No JVD, no carotid bruit. No lymphadenopathy or thyromegaly. LUNGS: Clear to auscultation. Percussion note normal. Chest symmetrical. HEART: S1, S2, no S3. No murmur. No cyanosis or clubbing. No ascites. Pulses: Dorsalis pedis and posterior tibial pulses +1 to +2 bilaterally. ABDOMEN: Soft. Nontender. Bowel sounds active. No CVA tenderness. No mass felt. EXTREMITIES: No edema. Full range of motion of all extremities, equal. NEUROLOGIC: No focal deficit. Cranial nerves II through XII are grossly intact. No headache, no double vision or headache. SKIN: Not dry. Intact. Turgor - normal. LYMPHATIC: No palpable lymph nodes/no lymphedema. MUSCULOSKELETAL: Normal joints with no swelling. Muscle tone is normal. White count 10.05, hemoglobin 13.1, hematocrit 39.6, platelets 186. Sodium 137, potassium 3.7, BUN 35, creatinine 1.23. ABGs on room air 02 sat of 96, pH 7.43, pc02 39, p02 80, bicarb 25.9. Respiratory panel by PCR is negative. NT-Pro-BNP is 3,440, TSH 6.27, AST 69, ALT 120. EKG shows new onset atrial fibrillation with RVR. CT of the chest shows cardiomegaly with mild coronary artery calcification, ectatic ascending aorta, moderate bilateral pleural effusion with adjacent atelectasis, 5 mm left upper lobe nodule. ASSESSMENT: 1. New onset atrial fibrillation with rapid ventricular response. 2. Shortness of breath. 3. Underlying COPD. 4. Moderate mitral regurgitation. PLAN: 1. We will admit. 2. Routine telemetry orders. 3. CBC, CMP daily. 4. Start Cardizem drip 5 mg/hr, will wean down. 5. Start Cardizem 60 mg p.o. t.i.d. 6. 02 at 1 to 2L as needed. 7. Routine telemetry orders. 8. CBC, CMP daily. 9. T4, TSH. 10. Will follow closely. 11. Lasix 40 mg IV times one. TIME SPENT: More than 70 minutes. MTDD
[2021-04-26 10:13] VITALS: BP 0/0; TEMP 0
[2021-04-26] MEDS: BENICAR PO SCH (10:29)
[2021-04-26] MEDS: LOPRESSOR PO SCH (10:29)
[2021-04-26] MEDS: PRILOSEC PO SCH (10:29)
[2021-04-26] MEDS: FLOMAX PO SCH (10:29)
[2021-04-26] MEDS: MICRO-K CAP PO SCH (10:29)
[2021-04-26] MEDS: ELIQUIS PO SCH (10:30)
[2021-04-26] MEDS: CARDIZEM PO SCH (10:30)
--- NOTE | 2021-04-26 10:51 | DI ---
EXAM: Esophogram HISTORY: Feels something in throat COMPARISON: None FINDINGS: Esophogram was performed using barium, effervescent crystals and dissolvable barium tablet . Mild tertiary contractions noted during the exam. Otherwise, esophageal motility is normal. Esopha geal caliber is normal. Esophogeal mucosal pattern is grossly normal, noting portions of the esophogu s demonstrate single contrast opacification which limits evaluation. No filling defect is seen in the esophagus. No hiatal hernia. No visualized reflux. IMPRESSION: 1. No focal fluoroscopic abnormality at the patient's right upper neck region of interest. 2. No evidence of esophageal stricture or filling defect. 3. Mild tertiary contractions during the exam suggesting mild degree of dysmotility.
--- NOTE | 2021-04-26 11:21 | CM.DICTOOL ---
ADMISSION: 04/22/21 00:26 DISCHARGE: APRIL 26, 2021 DATE OF SERVICE: 04/26/21 FINAL DIAGNOSIS NEW ONSET ATRIAL FIBRILLATION WITH AVR CHF SEVERE TR, MODERATE MR HYPERTENSION HX: COPD/KYPHOSIS HTN CARDIOMEGALY ATHEROSCLEROSIS BPH GERD DIVERTICULOSIS FALL SURGICAL HX: APPENDECTOMY TONSILLECTOMY CODE STATUS: FULL CODE LAST VITALS Temp Pulse Resp BP Pulse Ox 97.8 F 95 H 20 111/73 92 L 04/26/21 05:26 04/26/21 05:26 04/26/21 05:26 04/26/21 05:26 04/26/21 05:26 TAKE THESE MEDICATIONS AT HOME Apixaban (Apixaban 5 Mg Tab) 5 mg PO BID Last Admin: 04/25/21 20:45 Dose: 5 mg Diltiazem HCl (Diltiazem Hcl 60 Mg Tablet) 120 mg PO Q12HR [facility] Last Admin: 04/25/21 20:46 Dose: 120 mg Furosemide (Furosemide 20 Mg Tablet) 20 mg PO QDAC [facility] Metoprolol Tartrate (Metoprolol Tartrate 25 Mg Tablet) 25 mg PO BID [facility] Last Admin: 04/25/21 20:47 Dose: 25 mg Olmesartan (Olmesartan Medoxomil 20 Mg Tablet) 10 mg PO DAILY [facility] Last Admin: 04/25/21 09:34 Dose: 10 mg Omeprazole (Omeprazole 20 Mg Capsule.Dr) 20 mg PO QDAC [facility] Last Admin: 04/25/21 06:24 Dose: 20 mg Potassium Chloride (Potassium Chloride 10 Meq Capsule.Er) 10 meq PO DAILYWM [facility] Last Admin: 04/25/21 09:34 Dose: 10 meq Tamsulosin HCl (Tamsulosin Hcl 0.4 Mg Cap.Er.24h) 0.4 mg PO DAILY [facility] Last Admin: 04/25/21 09:34 Dose: 0.4 mg ALLERGIES No Known Allergies Allergy (Verified 04/21/21 22:18) DISCONTINUED MEDICATIONS 1). Azithromycin 250 mg PO DAILY 2). PREDNISONE 10 MG PO BID 3). ASPIRIN 81 MG PO DAILY 4). Hydrochlorothiazide 25 mg PO DAILY 5). BENICAR (Olmesartan) 40 mg PO DAILY NEW PRESCRIPTIONS: ELIQUIS (Apixaban 5 Mg Tab) 5 mg PO BID CARDIZEM (Diltiazem Hcl 60 Mg Tablet) 120 mg PO Q12HR LASIX (Furosemide 20 Mg Tablet) 20 mg PO QDAC LOPRESSOR (Metoprolol Tartrate 25 Mg Tablet) 25 mg PO BID BENICAR (Olmesartan Medoxomil 20 Mg Tablet) 10 mg PO DAILY Potassium Chloride 10 meq PO DAILYWM g SMOKING: N/A DISEASE SPECIFIC EDUCATION: A- FIB CHF HYPERTENSION BLEEDING PRECAUTION ACTIVITY HEART HEALTHY DIET COVID LAB REVIEW: 04/26/21 04:42 04/26/21 04:42 04/26/21 04:42: Sodium 129.2 L, Potassium 4.35, Chloride 96.5 L, Carbon Dioxide 29.1, Anion Gap 7.95, BUN 29.2 H, Creatinine 0.89, Estimated GFR (MDRD) 81.00, BUN/Creatinine Ratio 32.80, Glucose 118.6 H, Calcium 9.15, Total Bilirubin 0.83, AST 36.8, ALT 70.7 H, Alkaline Phosphatase 88.0, Total Protein 5.74 L, Albumin 3.44 L, Globulin 2.30, Albumin/Globulin Ratio 1.49 04/26/21 04:42: WBC 12.73 H, RBC 4.44 L, Hgb 13.3 L, Hct 39.4 L, MCV 88.7, MCH 30.0, MCHC 33.8, RDW Coeff of Ap 13.1, Plt Count 217, Immature Gran % (Auto) 0.4, Neut % (Auto) 88.7 H, Lymph % (Auto) 4.3 L, [place] % (Auto) 6.5, Eos % (Auto) 0.0, Baso % (Auto) 0.1, Neut # (Auto) 11.3 H, Lymph # (Auto) 0.6, [place] # (Auto) 0.8, Eos # (Auto) 0.0, Baso # (Auto) 0.0, Immature Gran # (Auto) 0.1 PLAN: DISCHARGE: HOME TODAY, APRIL 26, 2021 INDEPENDENT AT HOME ACTIVITY: UP TOLERATED WITH NO ASSISTIVE DEVICE NO STRENIOUS ACTIVITY UNTIL RELEASED BY MD NO OUTSIDE ACTIVITIES UNTIL RELEASED BY MD BLEEDING PRECAUTIONS, RISK AND S/S OF GASTRIC OR INTRACRANIAL BLEEDING NO NSAIDS, CAN CAUSE INCREASED RISK IN BLEEDING PANDEMIC PRECAUTIONS DIET: HEART HEALTHY MD FOLLOW-UP: SEE DR. MCCLAIN/ KRISTI ANN APRN/ CHRIS FULLER APRN IN THE OFFICE ON SUNDAY, MAY 02, 2021 @ 1100 AM. CODE STATUS: FULL CODE MR. ALLEN REMAINS ALERT AND ORIENTED X 4. HE IS UP TOLERATED AND INDEPENDENT, NO ASSISTIVE DEVICE. HE DOES REPORT SOA WITH EXERTION BUT NO CHEST PAIN. SKIN WARM, DRY AND INTACT. TRACE EDEMA TO LEGS. HE CONTINUES TO HAVE OXYGEN SATURATIONS IN THE UPPER 90% ON ROOM AIR. HE FEEDS SELF AND HAS BEEN CONSUMING 100% OF HIS MEALS, EXCEPT 50% FOR THE 04/25 NOON MEAL. CONTINENT OF SAMIA L AND BLADDER. LAST BM 04/23/2021. HE LIVES ALONE AND STILL DRIVES. MD KRISTI BACON APRN ALYCE HANNAN, APRN
[2021-04-26] MEDS ORDERED: DECADRON IM STA (13:15)
--- NOTE | 2021-04-29 08:06 | ECHO2D ---
Date of Exam: 04/24/2021 Ordering Physician: DR. VITALY MCCLAIN Room #: [id number] Reason for Echo: ATRIAL FIBRILLATION, HYPERTENSION M-Mode Normal Adult Results LV Dimensions Normal Adult Results AoV Opening excursions >1.6 >1.6 LVEDD-base- 3.5-5.8 4.0 Ao root dimensions 2.0-3.7 3.9 LVESD-base- 3.1-4.6 L. Atrium dimensions 1.9-3.8 5.1 Post. Wall thickness 0.8-1.1 1.2 IV septum (thickness) 0.7-1.2 1.3 Post. Wall excursion 0.72-1.3 NORMAL Septal motion NORMAL Systolic motion R. Ventricular cavity 1.5-2.0 4.5 LVEF 60% 55% Paradoxical septal wall motion NORMAL 2-D : 2-D M Mode Echocardiogram was performed using apical four chamber and left parasternal long and short axis views. Mitral, tricuspid and aortic valves appear to be normal. Contractility of the left ventricle seems to be normal, so is the cavity size. ENLARGED LEFT ATRIAL CAVITY. Aortic root appears to be normal. There is no pericardial effusion. There is no thrombus noted in the left ventricle or left atrial cavity. ENLARGED RIGHT VENTRICLE CAVITY COLOR FLOW: SEVERE TRICUSPID REGURGITATION AND MODERATE MITRAL REGURGITATION M-MODE: MV: NORMAL AV: NORMAL TV: NORMAL PV: CHAMBER SIZE: ENLARGED LEFT ATRIAL AND RIGHT VENTRICLE CAVITY WALL MOTION: NORMAL PERICARDIUM: NORMAL INTERPRETATION: 1. LEFT VENTRICULAR HYPERTROPHY WITH ENLARGED LEFT ATRIAL CAVITY (5.1 CM) 2. ENLARGED RIGHT VENTRICLE CAVITY 3. NORMAL LEFT VENTRICLE CONTRACTILITY 4. SEVERE TRICUSPID REGURGITATION/ MODERATE MITRAL REGURGITATION MTDD
--- NOTE | 2021-04-29 13:59 | PN ---
DATE OF SERVICE: 04/25/2021 SUBJECTIVE: 85 year old white male hospitalized with atrial fibrillation with increased ventricular response with CHF. The patient's condition has improved. His appetite has improved. No symptoms of CHF noted. REVIEW OF SYSTEMS: CONSTITUTIONAL: No night sweats. No fatigue, malaise, lethargy. No fever or chills. HEENT: Eyes: No visual changes. No eye pain. No eye discharge. ENT: No runny nose. No epistaxis. No sinus pain. No sore throat. No odynophagia. No congestion. RESPIRATORY: No cough, no congestion. No hemoptysis. No shortness of breath. CARDIOVASCULAR: No angina symptoms. No CHF symptoms. No atypical chest pain for CAD. No palpitations. No PND. No orthopnea. GASTROINTESTINAL: No abdominal pain. No nausea or vomiting. No diarrhea or constipation. No hematemesis. No hematochezia. GENITOURINARY: No urgency. No frequency. No dysuria. No hematuria. No obstructive symptoms. No discharge. No pain. No significant abnormal bleeding. MUSCULOSKELETAL: No musculoskeletal pain; no joint swelling. NEUROLOGICAL: No headache. No neck pain. No syncope. No seizures. No dizziness. PSYCHIATRIC: Not anxious. No depression. No suicidal thoughts. No homicidal thoughts. SKIN: No rash. No lesions. No wounds. ENDOCRINE: No unexplained weight loss. No weight gain. HEMATOLOGIC/LYMPHATIC: No anemia. No purpura. No petechiae. No prolonged or excessive bleeding. No palpable lymph nodes. PHYSICAL EXAMINATION: VITAL SIGNS: Temperature 98.2, pulse 90, respiratory rate 15, blood pressure 130/70. HEENT: Head normocephalic, atraumatic. Eyes: Extraocular muscles are intact. Pupils are equal, round and reactive to light and accommodation. Ears: No lesions. Nose appeared normal. Throat: No exudate or erythema. NECK: Supple. No JVD, no carotid bruit. No lymphadenopathy or thyromegaly. LUNGS: Good air entry. Clear to auscultation. Percussion note normal. Chest symmetrical. HEART: S1, S2, no S3. No murmurs. Irregular. No cyanosis or clubbing. No ascites. Pulses: Dorsalis pedis and posterior tibial pulses +1 to +2 bilaterally. ABDOMEN: Soft. Nontender. Bowel sounds active. No CVA tenderness. No mass felt. EXTREMITIES: No edema. Full range of motion of all extremities, equal. NEUROLOGIC: No focal deficit. Cranial nerves II through XII are grossly intact. No headache. No double vision. SKIN: Not dry. Intact. Turgor - normal. LYMPHATIC: No palpable lymph nodes/no lymphedema. MUSCULOSKELETAL: Normal joints with no swelling. Muscle tone is normal. LABS: Echo showed normal LV contractility. Severe tricuspid regurgitation, Moderate mitral regurgitation. Normal ejection fraction. PLAN: 1. Continue Cardizem, Metoprolol 2. Atrial fibrillation discussed with it's complications. 3. Eliquis with GI and intracranial bleed discussed 4. No non-steroidal antiinflammatory with Eliquis discussed CONDITION: Stable. TIME SPENT: More than 30 minutes. Plan and coordination of the patient's care discussed in the presence of nurse. PARMINDER
--- NOTE | 2021-04-30 08:36 | DS ---
DATE OF SERVICE: 04/26/2021 FINAL DIAGNOSIS: NEW ONSET ATRIAL FIBRILLATION WITH AVR CHF SEVERE TR, MODERATE MR HYPERTENSION HISTORY: COPD/KYPHOSIS HYPERTENSION CARDIOMEGALY ATHEROSCLEROSIS BPH GERD DIVERTICULOSIS FALL SURGICAL HISTORY: APPENDECTOMY TONSILLECTOMY CODE STATUS: FULL CODE LAST VITALS: Temp Pulse Resp BP Pulse Ox 97.8 F 95 H 20 111/73 92 L 04/26/21 05:26 04/26/21 05:26 04/26/21 05:26 04/26/21 05:26 04/26/21 05:26 DISCHARGE INSTRUCTIONS: DISCHARGE: HOME TODAY, APRIL 26, 2021; INDEPENDENT AT HOME. MD FOLLOW-UP: SEE DR. MCCLAIN/ KRISTI ANN APRN/ CHRIS FULLER APRN IN THE OFFICE ON SUNDAY, MAY 02, 2021 @ 1100 AM. CODE STATUS: FULL CODE. TAKE THESE MEDICATIONS AT HOME: Apixaban (Apixaban 5 Mg Tab) 5 mg PO BID Last Admin: 04/25/21 20:45 Dose: 5 mg Diltiazem HCl (Diltiazem Hcl 60 Mg Tablet) 120 mg PO Q12HR [facility] Last Admin: 04/25/21 20:46 Dose: 120 mg Furosemide (Furosemide 20 Mg Tablet) 20 mg PO QDAC [facility] Metoprolol Tartrate (Metoprolol Tartrate 25 Mg Tablet) 25 mg PO BID [facility] Last Admin: 04/25/21 20:47 Dose: 25 mg Olmesartan (Olmesartan Medoxomil 20 Mg Tablet) 10 mg PO DAILY [facility] Last Admin: 04/25/21 09:34 Dose: 10 mg Omeprazole (Omeprazole 20 Mg Capsule.Dr) 20 mg PO QDAC [facility] Last Admin: 04/25/21 06:24 Dose: 20 mg Potassium Chloride (Potassium Chloride 10 Meq Capsule.Er) 10 meq PO DAILYWM [facility] Last Admin: 04/25/21 09:34 Dose: 10 meq Tamsulosin HCl (Tamsulosin Hcl 0.4 Mg Cap.Er.24h) 0.4 mg PO DAILY [facility] Last Admin: 04/25/21 09:34 Dose: 0.4 mg ALLERGIES: No Known Allergies Allergy (Verified 04/21/21 22:18) DISCONTINUED MEDICATIONS: 1). Azithromycin 250 mg PO DAILY 2). PREDNISONE 10 MG PO BID 3). ASPIRIN 81 MG PO DAILY 4). Hydrochlorothiazide 25 mg PO DAILY 5). BENICAR (Olmesartan) 40 mg PO DAILY NEW PRESCRIPTIONS: ELIQUIS (Apixaban 5 Mg Tab) 5 mg PO BID CARDIZEM (Diltiazem HCL 60 Mg Tablet) 120 mg PO Q12HR LASIX (Furosemide 20 Mg Tablet) 20 mg PO QDAC LOPRESSOR (Metoprolol Tartrate 25 Mg Tablet) 25 mg PO BID BENICAR (Olmesartan Medoxomil 20 Mg Tablet) 10 mg PO DAILY Potassium Chloride 10 MEQ PO DAILYWM SMOKING: N/A DISEASE SPECIFIC EDUCATION: A- FIB CHF HYPERTENSION BLEEDING PRECAUTION ACTIVITY HEART HEALTHY DIET COVID LAB REVIEW: 04/26/21 04:42 04/26/21 04:42 04/26/21 04:42: Sodium 129.2 L, Potassium 4.35, Chloride 96.5 L, Carbon Dioxide 29.1, Anion Gap 7.95, BUN 29.2 H, Creatinine 0.89, Estimated GFR (MDRD) 81.00, BUN/Creatinine Ratio 32.80, Glucose 118.6 H, Calcium 9.15, Total Bilirubin 0.83, AST 36.8, ALT 70.7 H, Alkaline Phosphatase 88.0, Total Protein 5.74 L, Albumin 3.44 L, Globulin 2.30, Albumin/Globulin Ratio 1.49 04/26/21 04:42: WBC 12.73 H, RBC 4.44 L, Hgb 13.3 L, Hct 39.4 L, MCV 88.7, MCH 30.0, MCHC 33.8, RDW Coeff of Ap 13.1, Plt Count 217, Immature Gran % (Auto) 0.4, Neut % (Auto) 88.7 H, Lymph % (Auto) 4.3 L, Lamb % (Auto) 6.5, Eos % (Auto) 0.0, Baso % (Auto) 0.1, Neut # (Auto) 11.3 H, Lymph # (Auto) 0.6, Lamb # (Auto) 0.8, Eos # (Auto) 0.0, Baso # (Auto) 0.0, Immature Gran # (Auto) 0.1 ACTIVITY: UP TOLERATED WITH NO ASSISTIVE DEVICE NO STRENIOUS ACTIVITY UNTIL RELEASED BY MD NO OUTSIDE ACTIVITIES UNTIL RELEASED BY MD BLEEDING PRECAUTIONS, RISK AND S/S OF GASTRIC OR INTRACRANIAL BLEEDING NO NSAIDS, CAN CAUSE INCREASED RISK IN BLEEDING PANDEMIC PRECAUTIONS DIET: HEART HEALTHY HOSPITAL COURSE: 85 year old white male hospitalized with atrial fibrillation with increased ventricular response and congestive heart failure. The patient was given IV Lasix in the emergency room and was started on Cardizem drip. Later on the patient was converted to PO Cardizem. He was settled on 120mg twice a day along with Metoprolol 25mg twice a day. His Benicar dose was decreased to 10mg. He was put on Lasix 20mg along with Potassium supplement. The patient's LV contractility by echo is normal and LA cavity it enlarged. It is more than 5cm size. The patient is already started on Eliquis. The patient had evidence of RV cavity enlargement by echo with chronic lung disease. In any case that patient's condition at the time of discharge is stable with apical rate average around 80 per minutes. Normal blood pressure. His appetite improved. Breathing improved. He was feeling a lot better. He was explained about atrial fibrillation and it's complication. VICENTE II Vasc score was more than 3. The patient also was explained about Eliquis and intracranial and GI bleed. He was advised not to mix with nonsteroidal anti-inflammatory. The patient has been offered to be referred to ditching machine engineer. He is going to think about it. The patient is doesn't seem to be a candidate for ablation because of his age. CONDITION: Stable. TIME SPENT: More than 60 minutes. MTDD
== END 2021-04-26 13:55 | disposition home or self-care (01) | DRG 204 ==
LOC: ED 21:44 → MEDSURG A 04-22 00:26
PROVIDERS: ADMIT Internal Medicine; ATTEND Internal Medicine
DX: I34.0 Nonrheumatic mitral (valve) insufficiency; I10 Essential (primary) hypertension; Z20.822 Contact with and (suspected) exposure to COVID-19; I48.91 Unspecified atrial fibrillation; I35.0 Nonrheumatic aortic (valve) stenosis; R05 Cough; Z79.01 Long term (current) use of anticoagulants; R06.02 Shortness of breath; M79.9 Soft tissue disorder, unspecified; I50.9 Heart failure, unspecified; R13.10 Dysphagia, unspecified; R60.0 Localized edema